=== PATIENT | female | born 1980 | race American Indian/Alaskan Native ===

== ENCOUNTER 2021-10-28 10:09 | Outpatient (CLI) | payer OTHER ==
--- NOTE | 2021-10-28 13:19 | XRay Report ---
Lumbar spine 3 views INDICATION: Back pain FINDINGS: Minimal anterior listhesis of L4-L5. Advanced facet changes at L4-5 and L5-S1. Visualized s acrum appears normal. IMPRESSION: Degenerative change. No acute findings. Bilateral knees INDICATION: Knee pain IMPRESSION: Tricompartmental degenerative changes seen in bilateral knees with joint space and medial compartment and patellofemoral joint. No acute findings. Signer Name: Alex Dimas MD Signed: 10/28/2021 1:14 PM Workstation Name: [id number]
== END 2021-10-28 10:10 | disposition home or self-care (01) ==
LOC: XRAY 10:09
PROVIDERS: ATTEND Internal Medicine
DX: M17.0 Bilateral primary osteoarthritis of knee (principal); M51.37 Other intervertebral disc degeneration, lumbosacral region
CPT/HCPCS: 72100; 73565